=== PATIENT | female | born 1980 | race Caucasian/White ===

== ENCOUNTER 2024-03-08 03:04 | Emergency (ER) | payer BC, SELFPAY ==
[2024-03-08] VITALS (8 sets, daily range): BP systolic 108–153; BP diastolic 69–89; BMI 24.1
[2024-03-08 05:16] LABS: % Basophils 0.4 % (0-2); % Eosinophils 0.9 % (0-6); % Immature Granulocytes 1.3 % (0-0.5); % Lymphocytes 25.3 % (20.5-51.1); % Monocytes 7.2 % (1.7-9.3); % Neutrophils 64.9 % (42.2-75.2); Absolute Eosinophils 0.1 10^3/uL (0-0.7); Absolute Immature Granulocytes 0.1 10^3/uL (0-0.05); Absolute Lymphocytes 1.8 10^3/uL (1.2-3.4); Absolute Monocytes 0.5 10^3/uL (0.1-0.6); Absolute Neutrophils 4.6 10^3/uL (1.4-6.5); Hematocrit 41.2 % (37.0-47.0); Hemoglobin 13.4 g/dL (12.0-16.0); Mean Corp Hgb Conc. 32.5 g/dL (33.0-37.0); Mean Corpuscular Hgb 28.8 pg (27.0-31.0); Mean Corpuscular Volume 88.4 fL (81.0-99.0); Mean Platelet Volume 8.7 fL (7.4-10.4); Nucleated Red Blood Cells % 0 %; Platelet Count 316 10^3/uL (130-400); Red Blood Cell Count 4.66 10^6/uL (4.20-5.40); Red Cell Dist. Width 12.7 % (11.5-14.5)
[2024-03-08 05:33] LABS: ALT (SGPT) 26 U/L (0-35); AST (SGOT) 28 U/L (14-36); Albumin 4.3 g/dl (3.5-5.0); Alkaline Phosphatase 84 U/L (38-126); Blood Urea Nitrogen 12 mg/dl (7-17); Calcium 9.6 mg/dl (8.4-10.2); Carbon Dioxide 22 mmol/L (22-30); Chloride 106 mmol/L (98-107); Estimated Creatinine Clearance 95 ml/min; Glucose 100 mg/dl (70-99); Lipase 73 U/L (23-300); Potassium 3.9 mmol/L (3.5-5.1); Sodium 136 mmol/L (135-145); Total Bilirubin 0.6 mg/dl (0.2-1.3); Total Protein 7.7 g/dl (6.3-8.2); eGFR > 60.00
[2024-03-08 05:34] LABS: HCG, Serum Qualitative Screen Negative
[2024-03-08 05:37] LABS: Troponin I < 0.012 ng/ml
--- NOTE | 2024-03-08 07:27 | ED.GENMED ---
History of Present Illness
General
Chief Complaint: Swelling
Source: patient and family
Exam Limitations: none
Time Seen by Provider: 03/08/24 06:56
Nursing documentation reviewed up to this point in time: agreed with
Travel History
Have you had any contact with someone who has COVID-19?: No
Do you have any symptoms of coronavirus? Fever > 100 degrees, chills, cough, shortness of breath, sore throat, loss of taste or smell, muscle aches, or headache?: No
History of Present Illness
History of Present Illness:
43-year-old female presents emerged from complaining of chest burning, and middle back tightness this morning and left lower extremity calf tightness and swelling. She just flew back from [place] yesterday. She has had swelling in her legs before
and did not have a DVT. She denies any symptoms at this time.
Past History
Past History
ED Past Medical History: GERD
ED Past Surgical History: None
Social History
Tobacco: Non-smoker
Alcohol: Occasional
Drug: None
Personal:
Living: with family
Employment: Employed
Review of Systems
Review of Systems
Allergies reviewed?: Yes
All Other Systems: Not applicable
Constitutional: Reports no symptoms
EENT: Reports no symptoms
Respiratory: Reports no symptoms
Cardiac: Reports chest pain
ABD/GI: Reports no symptoms
: Reports no symptoms
Musculoskeletal: Reports edema
Skin: Reports no symptoms
Neurological: Reports no symptoms
Endocrine: Reports no symptoms
Hematologic/Lymphatic: Reports no symptoms
Psychiatric: Reports no symptoms
Phy Exam
Physical Exam
Physical Exam:
Physical Exam
General: no apparent distress, not acutely ill
Neck: supple. no meningeal signs. normal posterior pharynx
Heart: s1/s2 regular rate and rhythm, no murmur. equal radial
pulses.
HEENT: Pupils equal round reactive to light, EOMI
Lungs: no acute respiratory distress. clear bilaterally
Abdomen: normal bowel sounds. not tender. no CVAT
Neuro: alert and oriented. no focal neurological deficits cranial nerves II through XII intact
Skin: no rash
Psychiatric: well kept. interactive and cooperative
Extremities: No edema. no calf tenderness. negative homans. good distal pulses
Course
Orders/Labs/Results
Orders:
Orders
03/08/24 03:33
ECG [Electrocardiogram (*1)] Urgent
Reason for Study: Abdominal Pain
Cardiology Consult: Unknown
EKG- Treatment ONCE
03/08/24 03:34
Test Result ONCE
03/08/24 04:58
Complete Blood Count/With Diff Urgent
Comprehensive Metabolic Panel Urgent
HCG, Serum Qualitative Screen Urgent
Lipase Urgent
Troponin I Urgent
03/08/24 07:26
US Periph Venous LOWER Ext LT Urgent
Comment:
Reason For Exam: left leg swelling
03/08/24 07:27
Pantoprazole [Protonix] 40 mg PO NOW STA
03/08/24 08:25
Electrocardiogram (*1) Urgent
Reason for Study: Chest Pain
EKG- Treatment ONCE
03/08/24 08:31
Troponin I Urgent
03/08/24 09:33
Pantoprazole [Protonix] 40 mg .ROUTE .STK-MED ONE
Abnormal Lab Results
03/08/24
04:58
MCHC 32.5 L g/dL
(33.0-37.0)
Abs Immat Gran (auto) 0.1 H 10^3/uL
(0-0.05)
Immature Gran % 1.3 H %
(0-0.5)
Glucose 100 H mg/dl
(70-99)
03/08/24 04:58
03/08/24 04:58
Vital Signs
Initial and Last Documented VS:
Initial Vital Signs
Temp Pulse Resp BP Pulse Ox
98.3 F 73 20 153/89 98
03/08/24 03:26 03/08/24 03:26 03/08/24 03:26 03/08/24 03:26 03/08/24 03:26
Last Documented Vital Signs
Temp Pulse Resp BP Pulse Ox
98.3 F 76 19 121/72 98
03/08/24 03:26 03/08/24 10:15 03/08/24 10:15 03/08/24 10:00 03/08/24 10:15
MDM/Problems Addressed
Differential Diagnosis Includes:
DVT, ACS, GERD
MDM/Problems Addressed:
43-year-old female with chest pain, likely related to GERD. No signs of ACS, left lower leg swelling, unclear etiology but no signs of DVT. Patient stable for primary care follow-up
*Radiology
Radiology exam reviewed: radiology read reviewed (Ultrasound left lower extremity no DVT)
*Pulse Oximetry
Patient hypoxic: no
*EKG
Interpreted by ED Provider?: Yes
EKG Intrepretation Date: 03/08/24
EKG Intrepretation Time: 04:16
Interpretation: normal
Comparison EKG: no changes
Heart Rate: 82
Rate: normal
Rhythm: sinus
[place]: normal axis
Interval: normal interval
QRS Pattern: normal QRS
Ischemia: no ischemia
*Home Care Physical Therapist Interpretation
Rate: normal
Interpretation: normal
Heart Rate: 80
Rhythm: sinus
*Critical Care Note
Total Time (30-74mins, 75-104mins- exclusive of procedures): Not Applicable
Patient Management
Social determinants of health affecting care: Living situation
Escalation/DeEscalation of care consider admission/obs:
Admit not indicated
ED Attending Note
-
Portions of this chart may have been created with voice recognition software.� Occasional wrong word or��sound alike� substitutions may have occurred due to the inherent limitations of voice recognition software.
Discharge Plan
Departure
Patient Disposition: Home (Routine Discharge)
Date of Disposition: 03/08/24
Time of Disposition: 10:08
Patient with high blood pressure during this ER visit?: Yes
Condition: Good
Discharge Problem:
Chest pain, non-cardiac, Leg pain, left
Instructions: Chest Pain That Is Not Caused by the Heart (DC), Muscle and Bone Pain (DC), BLOOD PRESSURE
Prescriptions:
New
pantoprazole [Protonix] 40 mg tablet,delayed release (DR/EC)
40 mg PO DAILY Qty: 30 0RF
Referrals:
NONE,* [Family Provider] -
Activity Restrictions/Additional Instructions:
Follow up with primary care, return for any concerns.
Interventions
Interventions:
*Risk Screen - Suicide Last Done: 03/08/24 03:26
*General Assessment Last Done: 03/08/24 03:26
*Neglect/Abuse Screening Last Done: 03/08/24 03:26
ED- Fall Risk Assessment Last Done: 03/08/24 03:26
*ED COVID-19 Vaccine History Last Done: 03/08/24 03:26
*Nursing Disposition Last Done: 03/08/24 10:30
ED- Cardiac Assessment Last Done: 03/08/24 03:50
ED- Pulmonary Assessment Last Done: 03/08/24 03:50
ED-Skin Assessment Last Done: 03/08/24 03:50
Discharge Date and Time
Discharge Date/Time: 03/08/24 10:30
Print Language: BENINESE
[2024-03-08 09:00] LABS: Troponin I < 0.012 ng/ml
[2024-03-08] MEDS: PROTONIX 40 MG PO (09:40)
== END 2024-03-08 10:30 | disposition home or self-care (01) ==
LOC: EMR 03:04
PROVIDERS: Student in an Organized Health Care Education/Training Program; EMERGENCY PHYSICIAN Emergency Medicine
DX: R07.89 Other chest pain (principal); R60.0 Localized edema; M79.605 Pain in left leg; R03.0 Elevated blood-pressure reading, without diagnosis of hypertension
CPT/HCPCS: 99285; 80053; 83690; 84484; 84703; 85025; 93005; 93971